=== PATIENT | male | born 1955 | race Caucasian/White ===

== ENCOUNTER 2017-08-27 06:15 | Inpatient (IN) | payer OTHER ==
[2017-08-27] MEDS ORDERED: ceFAZolin 2 GM PREMIX (*) 2 GM/50 ML BAG IVPB ONE (06:32)
[2017-08-27] MEDS ORDERED: fentaNYL* 50 MCG/ML 2 ML VIAL (100 MCG VIAL) ONE (07:06)
[2017-08-27] MEDS ORDERED: Midazolam* 1 MG/ML 5 ML VIAL (5 MG) ONE (07:06)
[2017-08-27] MEDS ORDERED: Morphine PF AMP (0.5MG/ML)* 5 MG/10 ML AMP ONE (07:16)
[2017-08-27] MEDS ORDERED: Lidocaine 2% PF* 10 ML AMP ONE (08:33)
[2017-08-27] MEDS ORDERED: Bupivacaine 0.5% PF 10 ML VIAL INJ ONE (08:33)
[2017-08-27] MEDS ORDERED: Dexamethasone IV* 4 MG/ML 1 ML (4 MG) ONE (08:45)
[2017-08-27] MEDS ORDERED: Ketorolac INJ* 30 MG/ML 1 ML VIAL ONE (08:45)
[2017-08-27] MEDS ORDERED: Ondansetron ODT TAB* 4 MG ONE (08:56)
[2017-08-27] MEDS ORDERED: diPHENhydraMINE IV* 50 MG/ML 1 ml VIAL (BENADRYL) IV PRN ×2 (09:35→11:48)
[2017-08-27] MEDS ORDERED: Morphine VIAL* 4 MG/ML VIAL (1 ml vial) IV PRN ×2 (09:35)
[2017-08-27] MEDS ORDERED: Magnesium Hydroxide LIQ* 30 ML UDC PO PRN (09:35)
[2017-08-27] MEDS ORDERED: oxyCODONE TAB* 5 MG TAB PO PRN ×2 (09:35→11:48)
[2017-08-27] MEDS ORDERED: Cyclobenzaprine TAB* 10 MG PO PRN (09:35)
[2017-08-27] MEDS ORDERED: diPHENhydraMINE PO* 25 MG PO PRN (09:35)
[2017-08-27] MEDS: D5W 1/2 NS 1000 ML BAG* 1,000 ML IV SCH ×2 (11:16→21:54)
[2017-08-27] MEDS ORDERED: Ketorolac INJ* 30 MG/ML 1 ML VIAL IV PRN (11:48)
[2017-08-27] MEDS ORDERED: Ondansetron 40 MG VIAL* 2 MG/ML 20 ML VIAL IV PRN (11:48)
[2017-08-27] MEDS ORDERED: PROCHLORPERAZINE INJ 5 MG/ML 2 ML VIAL IV PRN (11:48)
[2017-08-27] MEDS ORDERED: Naloxone* 0.4 MG/ML 1 ML VIAL IV PRN (11:48)
[2017-08-27] MEDS ORDERED: HYDROcodone/ACETAMIN 5-325 MG* 1 TAB PO PRN (11:48)
[2017-08-27] MEDS ORDERED: Acetaminophen TAB* 325 MG PO PRN (11:48)
--- NOTE | 2017-08-27 11:50 | RAD ---
Indication: Post LEFT total hip replacement. Comparison: August 15, 2017 Technique: Low AP pelvis and proximal femurs. Report: Significant leftward rotation. LEFT total hip replacement appears normally located in the oblique AP projection. No periprosthetic fracture evident within limits of a single radiographic view. Surrounding soft tissue edema, subcutaneous emphysema, and lateral overlying cutaneous alisha. Urinary catheter in place. IMPRESSION: Unremarkable immediate postop appearance of the prosthetic LEFT hip in the oblique AP projection provided.
--- NOTE | 2017-08-27 16:14 | OP ---
DATE OF OPERATION: 08/27/17 - ROOM #348 DATE OF : 51 SURGEON: Tamir Mao MD LUMBER STRAIGHTENED: KASIE Baptiste ANESTHESIA: Spinal. PRE-OP DIAGNOSIS: Osteoarthritis, left hip. POST-OP DIAGNOSIS: Osteoarthritis, left hip. OPERATIVE PROCEDURE: Left total hip arthroplasty. ESTIMATED BLOOD LOSS: 150 cc. COMPLICATIONS: None. HARDWARE: Dara #11 ML taper reduced neck with standard offset, minus 3.5 mm 36 mm head, 56 mm continuum cup with 2 screws, 15 degree vitamin E impregnated elevated liner. 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 He has end-stage osteoarthritis with significant spurs, sclerosis, and deformity of the femoral head. I discussed with him that a total hip arthroplasty should work well to decrease his pain and improve his function. Risks of surgery such as infection, scar formation, stiffness, DVT, pulmonary embolism, leg length discrepancy, and instability were some of the risks discussed. He had quite a few questions and all of these were answered to his satisfaction. He also had been declared medically optimized. DESCRIPTION OF PROCEDURE: The patient was brought to the OR and spinal anesthesia was introduced. Not much sedation was used as he spoke through most of the case. A Sprague catheter was placed and he was rolled into the right lateral decubitus position. Axillary roll was placed and he reported he was quite comfortable. Left hip area was prepped and then draped. Incision was made centered over the greater trochanter and carried down through skin and subcutaneous fat. Small bleeders encountered were ligated using electrocautery. Fascia was exposed and sharply incised. Greater trochanteric fascia was taken down using electrocautery and a Charnley retractor was placed. Nice exposure of the piriformis was obtained and a Hohmann was placed under the gluteus medius/gluteus minimus. Electrocautery was then used to take down piriformis and short external rotators. T capsulotomy was made and the hip was easily dislocated. Cutting guide was placed and the femoral neck was marked. Femoral head was then resected. Anterior C retractor as well as an inferior acetabular retractor was placed and nice exposure of the acetabulum was obtained. Labrum was sharply excised and reaming was started with a 46. It was deepened just a little bit, but I knew I did not want to medialize much as it already was quite medial. I templated him for a 56 cup and he seemed to come right along nicely for that. Care was taken to make sure that he was nicely anteverted as well as having proper tilt. Out of 55, I had a nice side- to-side fit with the reamer and bleeding bone and a 56 cup was called for. Cup was then impacted into place. Two screws were placed and nice bite was obtained with both. Flat trial liner was placed and attention was turned to the proximal femur. Box osteotome was used to open the femoral canal and the canal finder was then run once. Beginning with a 5 broach, he was progressively broached, and with an 11, I was able to see him nicely. He had an odd templating for the stem as on the pelvis view, I templated him for a 12.5 , but on the hip view, on the AP of just the hip, he had only templated to a 9. The necks were different for both. With this, he was in between, so I thought that this was probably perfect. With the 11 though, he was long even with a reduced neck and a minus head. 11 was taken out and the 10 was countersunk some and Calcar planer was used, but then the femoral neck was recut and had a nice smooth cut with the 10 being smoothly seated. His leg length was now perfect with the reduced neck and a minus head and he had very good stability. He was started to lever around at 45 degrees of internal rotation. Trial instrumentation was removed and an elevator liner was placed. #10 stem was then impacted into place and minus head also impacted. He had the same very good stability. Hip was copiously pulse lavaged and capsule and short external rotators were paired together to the posterior aspect of the greater trochanter. Hip was again copiously pulse lavaged and the fascia was repaired using interrupted #1 Vicryl sutures. Subcutaneous tissues were approximated with 2-0 Vicryl. Skin was closed using alisha. Sterile dressing was applied. Abduction pillow was applied and the patient was rolled on to the hospital bed and was stable on transfer to the recovery room. [id number]/[facility] #: [id number] [facility]
[2017-08-27] MEDS: ceFAZolin 1 GM in Dextrose (*) 1 GM/50 ML BAG IVPB SCH ×2 (16:41→23:40)
[2017-08-27] MEDS: Finasteride TAB* 5 MG PO SCH (16:42)
[2017-08-27] MEDS: Atorvastatin* 20 MG TAB PO SCH (16:42)
[2017-08-27] MEDS ORDERED: Warfarin TAB(*) 10 MG PO ONE (17:00)
[2017-08-27] MEDS: Docusate CAP* 100 MG PO SCH (21:54)
[2017-08-27] MEDS: Magnesium Hydroxide LIQ* 30 ML UDC PO SCH (21:55)
[2017-08-27] MEDS: SAW PALMETTO PO SCH (21:55)
[2017-08-27] MEDS: traMADol TAB* 50 MG PO SCH (23:39)
[2017-08-28] MEDS ORDERED: diPHENhydraMINE IV* 50 MG/ML 1 ml VIAL (BENADRYL) IV PRN
[2017-08-28] MEDS ORDERED: oxyCODONE TAB* 5 MG TAB PO PRN
[2017-08-28] MEDS ORDERED: diPHENhydraMINE PO* 25 MG PO PRN
[2017-08-28] MEDS ORDERED: Morphine VIAL* 4 MG/ML VIAL (1 ml vial) IV PRN ×2
[2017-08-28 05:30] LABS: Hematocrit 25 % (42-52); Hemoglobin 8.6 g/dl (14.0-18.0); Mean Platelet Volume 9.3 um3 (7.4-10.4); Platelet Count 152 10^3/ul (150-450)
[2017-08-28 05:35] LABS: INR 0.98 (0.77-1.02)
[2017-08-28 05:42] LABS: EGFR Non-African American 105.2 (>60)
[2017-08-28] MEDS: traMADol TAB* 50 MG PO SCH ×4 (05:54→23:36)
[2017-08-28] MEDS: Acetaminophen TAB* 325 MG PO SCH ×3 (05:54→21:32)
[2017-08-28] MEDS: D5W 1/2 NS 1000 ML BAG* 1,000 ML IV SCH (07:48)
[2017-08-28] MEDS: ceFAZolin 1 GM in Dextrose (*) 1 GM/50 ML BAG IVPB SCH (07:48)
[2017-08-28] MEDS: Vitamin B Complex TAB PO SCH (07:54)
[2017-08-28] MEDS: SERTRALINE 50 MG PO SCH (07:55)
[2017-08-28] MEDS: Docusate CAP* 100 MG PO SCH ×2 (07:55→21:50)
[2017-08-28] MEDS: Atenolol TAB* 25 MG PO SCH (07:55)
[2017-08-28] MEDS: Magnesium Hydroxide LIQ* 30 ML UDC PO SCH ×2 (07:56→21:33)
[2017-08-28] MEDS: SAW PALMETTO PO SCH ×2 (07:57→21:33)
[2017-08-28] MEDS: Heparin VIAL(*) 5000 UNITS/ML VIAL (FIVE THOUSAND) SUBCUT SCH ×3 (12:23→21:50)
--- NOTE | 2017-08-28 13:09 | PN ---
Subjective Date of Service: 08/28/17 Interval History: Arrived to CAT team call. Pt felt lightheaded and pushed the RN alert button. Then he got up from his chair and walked to the bed. He lean both of his arms on bed , but was too weak to lay down and slid to the side of the bed on the floor. Did not hit head. LOC-probably seconds. On arrival pt's BP was 80/43, HR in 70's, 02 sat 98% on RA, he appeared pale, was AAOx3, brandyn on the floor , neuro intact. Exam grossly unremarkable. Left hip with surgical dressings in place -were not removed. Subsequent SBP 115. Pt was placed back in bed LR [address] Mao notified Repeat [facility] ordered Objective Active Medications: Acetaminophen (Tylenol Tab*) 975 mg PO Q8HR [facility] Last Admin: 08/28/17 12:26 Dose: Not Given Atenolol (Tenormin Tab*) 25 mg PO QAM [facility] Last Admin: 08/28/17 07:55 Dose: 25 mg Atorvastatin Calcium (Lipitor*) 20 mg PO QPM [facility] Last Admin: 08/27/17 16:42 Dose: Not Given Cyclobenzaprine HCl (Flexeril Tab*) 10 mg PO TID PRN PRN Reason: SPASMS Diphenhydramine HCl (Benadryl Iv*) 25 mg IV Q6H PRN PRN Reason: itching Diphenhydramine HCl (Benadryl Po*) 25 mg PO Q6H PRN PRN Reason: itching Docusate Sodium (Colace Cap*) 100 mg PO BID [facility] Last Admin: 08/28/17 07:55 Dose: 100 mg Finasteride (Proscar Tab*) 5 mg PO QPM [facility] Last Admin: 08/27/17 16:42 Dose: 5 mg Heparin Sodium (Porcine) (Heparin Vial(*)) 5,000 units SUBCUT Q8HR [facility] Last Admin: 08/28/17 12:23 Dose: 5,000 units Dextrose/Sodium Chloride (D5w 1/2 Ns 1000 Ml Bag*) 1,000 mls @ 100 mls/hr IV PER RATE [facility] Last Admin: 08/28/17 07:48 Dose: 100 mls/hr Lactated Ringer's (Lactated Ringers 500 Ml Bag*) 500 mls @ 999 mls/hr IV ONCE ONE Stop: 08/28/17 13:23 Magnesium Hydroxide (Milk Of Magnesia Liq*) 30 ml PO BID [facility] Last Admin: 08/28/17 07:56 Dose: Not Given Magnesium Hydroxide (Milk Of Magnesia Liq*) 30 ml PO Q6H PRN PRN Reason: constipation Morphine Sulfate (Morphine Vial*) 2 mg IV Q2H PRN PRN Reason: PAIN - BREAKTHROUGH Morphine Sulfate (Morphine Vial*) 4 mg IV Q2H PRN PRN Reason: PAIN - UNRELIEVED Pto: Iron 100 Plus (Tablet 1 Cap) 1 cap PO EVERY OTHER DAY [facility] Pto: [place] 1 (Cap) 1 cap PO BID [facility] Last Admin: 08/28/17 07:57 Dose: Not Given Oxycodone HCl (Roxycodone Tab*) 5 mg PO Q3H PRN PRN Reason: PAIN - SEVERE Pharmacy Profile Note (Coumadin Daily Reminder*) 0 note FOLLOW UP 1700 [facility] Last Admin: 08/27/17 16:43 Dose: 1 note Sertraline HCl (Zoloft*) 25 mg PO QAM [facility] Last Admin: 08/28/17 07:55 Dose: 25 mg Tramadol HCl (Ultram*) 50 mg PO Q6HR [facility] Last Admin: 08/28/17 12:24 Dose: 50 mg Vitamin B Complex/Vitamin E (B Complex-50*) 1 tab PO DAILY [facility] Last Admin: 08/28/17 07:54 Dose: 1 tab Vital Signs - 8 hr 08/28/17 08/28/17 08/28/17 05:54 07:21 07:52 Temperature 98.3 F Pulse Rate 53 Respiratory 18 16 20 Rate Blood Pressure 142/81 (mmHg) O2 Sat by Pulse 99 Oximetry 08/28/17 08/28/17 08:00 12:24 Temperature Pulse Rate 63 Respiratory 20 16 Rate Blood Pressure (mmHg) O2 Sat by Pulse 99 Oximetry Oxygen Devices in Use Now: None Result Diagrams: 08/28/17 05:11 08/28/17 05:11 Assess/Plan/Problems-Billing Assessment: Orthostatic hypotension and syncope
--- NOTE | 2017-08-28 13:26 | PN ---
Progress Note - Progress Note Date of Service: 08/28/17 SOAP: Subjective: [] Patient seen at bedside both this morning and in the afternoon. This morning he report feeling very well, to the extent he request to go home later in the day should he do well with physical therapy. I saw him at 1320, after a CAT call due to being found on the floor. Patient states he had felt faint and tried to get himself to the bed, though did not make it quite there. He report both this morning and this afternoon NO chest pain, shortness of breath, dizziness, lightheadedness or leg numbness. He states his hip feels " the same" after the fall, as it did prior to the fall. Objective: [] Vital Signs Temp 97.9 F 08/28/17 13:20 Pulse 64 08/28/17 13:20 Resp 18 08/28/17 13:20 BP 132/71 08/28/17 13:20 Pulse Ox 99 08/28/17 13:20 Intake & Output 08/27/17 08/28/17 08/28/17 18:59 06:59 18:59 Intake Total 2300 1880 1698 Output Total 525 700 640 Balance 1775 1180 1058 Intake: IV Fluids 7742 339 2971 D5W 1/2 NS 980 1283 LR 1900 NS 50ML, Cefazolin 2G 50 IVPB 50 55 ABX - CEFAZOLIN 50 55 Oral 350 850 360 Output: Urine 0 640 Sprague 525 250 Straight Cath 450 Other: Estimated Blood Loss 250 Comment Laboratory Last Values Hgb 8.6 g/dl (14.0-18.0) L 08/28/17 05:11 Hct 25 % (42-52) L 08/28/17 05:11 Plt Count 152 10^3/ul (150-450) 08/28/17 05:11 MPV 9.3 um3 (7.4-10.4) 08/28/17 05:11 INR (Anticoag Therapy) 0.98 (0.77-1.02) 08/28/17 05:11 Sodium 133 mmol/L (139-145) L 08/28/17 05:11 Potassium 3.9 mmol/L (3.5-5.0) 08/28/17 05:11 Chloride 104 mmol/L (101-111) 08/28/17 05:11 Carbon Dioxide 23 mmol/L (22-32) 08/28/17 05:11 Anion Gap 6 mmol/L (2-11) 08/28/17 05:11 BUN 20 mg/dL (6-24) 08/28/17 05:11 Creatinine 0.75 mg/dL (0.67-1.17) 08/28/17 05:11 Est GFR ( Amer) 135.3 (>60) 08/28/17 05:11 Est GFR (Non-Af Amer) 105.2 (>60) 08/28/17 05:11 BUN/Creatinine Ratio 26.7 (8-20) H 08/28/17 05:11 Glucose 145 mg/dL (70-100) H 08/28/17 05:11 Calcium 8.0 mg/dL (8.6-10.3) L 08/28/17 05:11 General: Well appearing, NAD. Nurses at bedside taking vitals. Carries on appropriate conversation LLE: Abduction pillow in use. DF/PF intact. Thigh soft. Dressing CDI. DP 2+, capillary refill less than two seconds distally. BL LE: Calves supple and nontender without erythema, edema or palpable cords. Assessment: []SP left total hip arthroplasty Plan: []Xray left hip. Anticipate continue WBAT as long as no acute injury seen. PT/OT Patient aware he is not to get up on his own, hip precautions repeat H&H, sodium, follow vitals.
[2017-08-28 13:44] LABS: Hematocrit 26 % (42-52); Hemoglobin 8.7 g/dl (14.0-18.0)
--- NOTE | 2017-08-28 15:10 | RAD ---
Indication: Fall, left hip pain. 2 views of the left hip and an AP view of the pelvis demonstrates bipolar left hip replacement in satisfactory position. No loosening is noted. No fracture of the pelvic ring is noted. IMPRESSION: Left hip replacement in satisfactory position.
[2017-08-28] MEDS ORDERED: Warfarin TAB(*) 6 MG PO SCH (17:00)
[2017-08-28] MEDS: Finasteride TAB* 5 MG PO SCH (17:36)
[2017-08-28] MEDS: Atorvastatin* 20 MG TAB PO SCH (17:37)
[2017-08-29 05:04] LABS: Hematocrit 25 % (42-52); Hemoglobin 8.8 g/dl (14.0-18.0); Mean Platelet Volume 9.2 um3 (7.4-10.4); Platelet Count 138 10^3/ul (150-450)
[2017-08-29 05:09] LABS: INR 1.68 (0.77-1.02)
[2017-08-29] MEDS: Acetaminophen TAB* 325 MG PO SCH ×2 (05:42→13:59)
[2017-08-29] MEDS: traMADol TAB* 50 MG PO SCH ×2 (05:46→12:05)
[2017-08-29] MEDS: Heparin VIAL(*) 5000 UNITS/ML VIAL (FIVE THOUSAND) SUBCUT SCH ×2 (05:47→13:56)
[2017-08-29] MEDS: Atenolol TAB* 25 MG PO SCH (08:34)
[2017-08-29] MEDS: Vitamin B Complex TAB PO SCH (08:34)
[2017-08-29] MEDS: SAW PALMETTO PO SCH (08:34)
[2017-08-29] MEDS: Magnesium Hydroxide LIQ* 30 ML UDC PO SCH (08:34)
[2017-08-29] MEDS: Docusate CAP* 100 MG PO SCH (08:35)
[2017-08-29] MEDS: SERTRALINE 50 MG PO SCH (08:35)
[2017-08-29] MEDS ORDERED: IRON PO SCH (09:00)
--- NOTE | 2017-08-29 12:06 | PN ---
Progress Note - Progress Note Date of Service: 08/29/17 SOAP: Subjective: []Patient seen at bedside. He feels well today and desires discharge home. Denies dizziness, lightheadedness, feeling unsteady on his feet, chest pain, shortness of breath. Objective: [] Vital Signs Temp 99.3 F 08/29/17 11:10 Pulse 75 08/29/17 11:10 Resp 18 08/29/17 14:00 BP 119/63 08/29/17 11:10 Pulse Ox 100 08/29/17 11:10 Intake & Output 08/28/17 08/29/17 08/29/17 18:59 06:59 18:59 Intake Total 3638 950 1160 Output Total 840 2025 450 Balance 2798 -1075 710 Intake: IV Fluids 1783 D5W 1/2 NS 1283 LR 500 IVPB 55 ABX - CEFAZOLIN 55 Oral 6268 003 9532 Output: Urine 840 2025 450 Other: Estimated Void Large # Bowel Movements 0 0 # Voids 1 1 Laboratory Last Values Hgb 8.8 g/dl (14.0-18.0) L 08/29/17 04:49 Hct 25 % (42-52) L 08/29/17 04:49 Plt Count 138 10^3/ul (150-450) L 08/29/17 04:49 MPV 9.2 um3 (7.4-10.4) 08/29/17 04:49 INR (Anticoag Therapy) 1.68 (0.77-1.02) H 08/29/17 04:49 Sodium 132 mmol/L (139-145) L 08/29/17 04:49 Potassium 3.9 mmol/L (3.5-5.0) 08/28/17 05:11 Chloride 104 mmol/L (101-111) 08/28/17 05:11 Carbon Dioxide 23 mmol/L (22-32) 08/28/17 05:11 Anion Gap 6 mmol/L (2-11) 08/28/17 05:11 BUN 20 mg/dL (6-24) 08/28/17 05:11 Creatinine 0.75 mg/dL (0.67-1.17) 08/28/17 05:11 Est GFR ( Amer) 135.3 (>60) 08/28/17 05:11 Est GFR (Non-Af Amer) 105.2 (>60) 08/28/17 05:11 BUN/Creatinine Ratio 26.7 (8-20) H 08/28/17 05:11 Glucose 145 mg/dL (70-100) H 08/28/17 05:11 Calcium 8.0 mg/dL (8.6-10.3) L 08/28/17 05:11 General: Well appearing, NAD. LLE: Dressing changed, incision CDI. DF/PF intact. Thigh soft. DP 2+, capillary refill less than two seconds distally. BL LE: Calves supple and nontender without erythema, edema or palpable cords. Assessment: []SP left total hip arthroplasty Plan: []WBAT, hip precautions PT/OT Patient met his goals with physical therapy today, he participate 2x and reports no episodes of dizziness, lightheadedness. Heparin, coumadin 4 mg today DC today
[2017-08-29 16:37] VITALS: BP 121/62
--- NOTE | 2017-08-30 12:52 | DS ---
DISCHARGE SUMMARY: DATE OF ADMISSION: 08/27/17 DATE OF DISCHARGE: 08/29/17 PROVIDER: Tamir Mao MD.* (DICTATED BY KASIE PARRISH) STAFFING COORDINATOR: KASIE Sellers. PRE-OP DIAGNOSIS: Osteoarthritis of the left hip. OPERATIVE PROCEDURE: Left total hip arthroplasty. HISTORY: Mr. Vance is a 61-year-old male, who has had continued troubles with both of hips. He has endstage osteoarthritis with significant spurs, sclerosis, and deformity of the femoral head. He elected to undergo a left total hip arthroplasty. HOSPITAL COURSE: The patient was admitted to [facility] on . He underwent a left total hip arthroplasty without any complication. He recovered briefly in the PACU and then was transferred in stable condition to the short-stay surgical unit. He was seen by Physical Therapy and Occupational Therapy during his stay. On postop day 1 in the morning, he reported that he was feeling quite well with no chest pain, shortness of breath, or dizziness. At 1303, he was seen by our hospitalist team for a CAT call due to feeling lightheaded and falling to the ground. He did not hit his head. This episode was deemed to be orthostatic hypotension and syncope. X-ray was done of his left hip with prosthesis remaining in good place and no acute fractures. Later in the day, he was seen by me. He was well appearing, in no acute distress. He again denied that had any chest pain, shortness of breath, dizziness, lightheadedness. His left lower extremity abduction pillow was in use. Dorsiflexion and plantarflexion were intact. Thigh was soft. Dressing clean, dry, and intact. Dorsalis pedis pulse 2+. Capillary refill less than 2 seconds distally. Calves are supple, nontender without erythema, edema, or palpable cords. Lab study showed, hemoglobin at 8.6, hematocrit of 25, sodium of 133. Postop day 2, the patient was well appearing, in no acute distress. Incision was clean, dry, intact without any surrounding erythema. He did have some bruising throughout the left upper extremity. No known induration and no severe tenderness. Dorsiflexion and plantar flexion was intact. Dorsalis pedis pulse 2+. Sensation intact distally. Labs were hemoglobin 8.8, hematocrit 25, platelet count 138, INR 1.68. Sodium 132. Vital Signs: Temperature 99.3, pulse rate 75, respiratory rate 17, oxygen saturation 100, blood pressure 119/63. The patient was deemed to be medically and orthopedically stable for discharge home. DISCHARGE MEDICATIONS: The patient will resume his: 1. Simvastatin 40 mg p.o. q. p.m. 2. Sertraline 25 mg p.o. q. a.m. 3. Finasteride 5 mg p.o. q. p.m. 4. Atenolol 25 mg p.o. q. a.m. 5. Glucosamine sulfate 100 mg p.o. b.i.d. 6. Iron 100 plus cap 1 cap every other day. 7. Saw [place] 1 cap p.o. b.i.d. 8. Aspirin 81 mg p.o. q. p.m. 9. Vitamin B12 at 500 mcg p.o. q.a.m. 10. Multivitamin 1 tab p.o. daily. New medications include: 1. Acetaminophen 975 mg p.o. q. 8 hours. 2. Docusate 100 mg p.o. b.i.d. 3. Tramadol 50 mg p.o. q. 6 hours, max daily dose of 6. 4. Vitamin B complex. 5. Warfarin 2 mg tabs 1 to 2 tabs daily depending on INR. 6. Oxycodone 5 mg tabs 1 tab p.o. q. 4 hours p.r.n., max daily dose of 4. DISCHARGE PLAN: The patient will be weightbearing as tolerated. He will continue hip precautions. Okay to shower after 3rd post operative day. No bathing, swimming, or submerging the wound. Do regular diet, but he will increase his sodium intake over the next several days and he will also have his sodium checked in 2 days by his home nurse. He will continue physical therapy and occupational therapy exercises as shown. Home nurse to remove the alisha in 10 to 12 days. Coumadin dosing is 4 mg today. Recheck INR for dosing instruction tomorrow. Pain control: Ultram 50 mg 1 to 2 tabs every 6 hours as needed for pain, max of 6 per day. He was also given oxycodone 5 mg for severe breakthrough pain, 1 tablet 4 hours needed for pain, max of 4 per day, he was given #5 of these and the patient understands that this is only for severe breakthrough pain. He will wean off narcotics as soon as possible and transition to Tylenol once the pain is controlled, max daily dose of 4000 mg from all sources. He will follow up with Dr. Mao in 4 weeks. He will call for an appointment. KASIE PARRISH [id number]/[facility] #: [id number] [facility]
== END 2017-08-29 17:30 | disposition home or self-care (01) | DRG 470 ==
LOC: AA 06:15 → SSU 11:26
PROVIDERS: ADMIT Orthopaedic Surgery; ATTEND Orthopaedic Surgery
PROC: 0SRB02A Replacement of Left Hip Joint with Metal on Polyethylene Synthetic Substitute, Uncemented, Open Approach (ICD-10-PCS; principal; 2017-08-27 07:30)
DX: M16.12 Unilateral primary osteoarthritis, left hip (principal); I47.1 Supraventricular tachycardia; M48.061 Spinal stenosis, lumbar region without neurogenic claudication; F41.9 Anxiety disorder, unspecified; N40.0 Benign prostatic hyperplasia without lower urinary tract symptoms; H26.9 Unspecified cataract; F17.210 Nicotine dependence, cigarettes, uncomplicated; M51.16 Intervertebral disc disorders with radiculopathy, lumbar region; G89.29 Other chronic pain; M76.822 Posterior tibial tendinitis, left leg; M43.17 Spondylolisthesis, lumbosacral region; E78.00 Pure hypercholesterolemia, unspecified; F32.9 Major depressive disorder, single episode, unspecified; L71.9 Rosacea, unspecified; L05.91 Pilonidal cyst without abscess; D12.6 Benign neoplasm of colon, unspecified; M21.952 Unspecified acquired deformity of left thigh; D64.9 Anemia, unspecified; E53.8 Deficiency of other specified B group vitamins; Z72.89 Other problems related to lifestyle; Z82.49 Family history of ischemic heart disease and other diseases of the circulatory system; Z83.49 Family history of other endocrine, nutritional and metabolic diseases; Z83.3 Family history of diabetes mellitus; Z79.82 Long term (current) use of aspirin; Z88.2 Allergy status to sulfonamides; Z88.5 Allergy status to narcotic agent; Z79.01 Long term (current) use of anticoagulants; Z81.8 Family history of other mental and behavioral disorders; I95.1 Orthostatic hypotension
CPT/HCPCS: 36415; 72170; 80048; 84300; 85014; 85018; 85049; 85610; 88304; 88311; A9270-GY; C1713; C1776; G8987-GO-CK; G8988-GO-CI; J0690; J1100; J1644; J1885; J2001; J2250; J3010

== ENCOUNTER 2022-08-22 05:56 | Observation (INO) ==
[2022-08-22] MEDS ORDERED: Buffered Lidocaine 1% SYRIN 1 ml INTRADERM ONE (06:00)
[2022-08-22] MEDS ORDERED: Lactated Ringers 1000 ml BAG 1,000 ML IV SCH ×2 (06:00→11:00)
[2022-08-22] MEDS ORDERED: Dexamethasone IV 4 MG/ML VIAL 1 ml VIAL IV SLOW PU ONE (06:00)
[2022-08-22] MEDS ORDERED: Famotidine IV 10 MG/ML 2 ml VIAL (20 mg) IV ONE (06:00)
[2022-08-22] MEDS ORDERED: Tranexamic Acid 1,000 MG in NS 0.9% 50 ML IV ONE (06:00)
[2022-08-22] MEDS ORDERED: Famotidine IV 10 MG/ML 2 ml VIAL (20 mg) ONE (06:21)
[2022-08-22] MEDS ORDERED: ceFAZolin 2 GM in NS PREMIX 2 GM/100 ML BAG IVPB ONE (06:21)
[2022-08-22] MEDS ORDERED: Dexamethasone IV 4 MG/ML VIAL 1 ml VIAL ONE (06:21)
[2022-08-22 06:56] LABS: Rapid COVID-19 Molecular Undetected (Undetected)
[2022-08-22] MEDS ORDERED: Propofol 10 MG/ML 20 ML BTL ONE ×3 (07:03→10:12)
[2022-08-22] MEDS ORDERED: Lidocaine 2% PF 5 ML VIAL ONE (07:03)
[2022-08-22] MEDS ORDERED: fentaNYL 100 mcg/2 ml 50 MCG/ML VIAL ONE (07:03)
[2022-08-22] MEDS ORDERED: Phenylephrine IV 10 MG/ML 1 ml VIAL ONE (07:03)
[2022-08-22] MEDS ORDERED: Midazolam 2 mg/2 ml VIAL 1 mg/ml 2 ml VIAL (2 mg) ONE (07:04)
[2022-08-22] MEDS ORDERED: ROPIVACAINE 5 MG/ML 30 ML BTL (0.5%) ONE (07:11)
[2022-08-22] MEDS ORDERED: Morphine 4 MG/ML VIAL (1 ml) IV PRN (07:43)
[2022-08-22] MEDS ORDERED: fentaNYL 100 mcg/2 ml 50 MCG/ML VIAL IV PRN (07:43)
[2022-08-22] MEDS ORDERED: Naloxone 0.4 mg VIAL 0.4 mg/ml 1 ml VIAL IV PRN (07:43)
[2022-08-22] MEDS ORDERED: Acetaminophen IV 1 GM/100ML 1,000 MG/100 ML BAG IV ONE (07:59)
[2022-08-22] MEDS ORDERED: Ondansetron 4 mg VIAL 2 MG/ML 2 ml VIAL ONE (09:07)
[2022-08-22] MEDS ORDERED: Sevoflurane BOTTLE ONE (10:23)
[2022-08-22] MEDS ORDERED: Ondansetron ODT 4 mg TAB 4 MG TAB PO PRN (10:44)
[2022-08-22] MEDS ORDERED: Lactulose 30 ml UDC PO PRN (10:44)
[2022-08-22] MEDS ORDERED: Morphine 2 MG/ML SYRINGE IV PRN (10:44)
[2022-08-22] MEDS ORDERED: Magnesium Hydroxide LIQ 30 ML UDC PO PRN (10:44)
[2022-08-22] MEDS ORDERED: Ondansetron 4 mg VIAL 2 MG/ML 2 ml VIAL IV PRN (10:44)
[2022-08-22] MEDS ORDERED: ceFAZolin 1 GM ADVAN 1 GM in NS 0.9% 50 ML 50 ML IVPB SCH (16:30)
[2022-08-22 18:51] VITALS: BP 146/80
[2022-08-22] MEDS ORDERED: Magnesium Hydroxide LIQ 30 ML UDC PO SCH (21:00)
[2022-08-23] MEDS ORDERED: Vitamin THERAPEUTIC TAB PO SCH (09:00)
== END 2022-08-22 18:30 | disposition home or self-care (01) ==
LOC: OR 05:56 → SSU 05:56
PROVIDERS: ADMIT Orthopaedic Surgery Adult Reconstructive Orthopaedic Surgery; ATTEND Orthopaedic Surgery Adult Reconstructive Orthopaedic Surgery